=== PATIENT | male | born 1960 | race Caucasian/White ===

== ENCOUNTER 2018-05-31 06:45 | Observation (INO) | payer OTHER ==
[2018-05-31] MEDS ORDERED: EPHEDrine SULFATE 50 MG/5 ML SYG ×2 (07:00→10:54)
[2018-05-31] MEDS ORDERED: ETOMIDATE 20 MG INJ (07:00)
[2018-05-31] MEDS: LIDOCAINE 1%/EPI (1:100,000) (MDV) 20 ML INJ ×2 (09:00→10:51)
[2018-05-31] MEDS ORDERED: LACTATED RINGER'S 1,000 ML IV (09:00)
[2018-05-31] MEDS ORDERED: DIPHENHYDRAMINE 50 MG INJ IV (10:30)
[2018-05-31] MEDS ORDERED: PROCHLORPERAZINE 10 MG INJ IV (10:30)
[2018-05-31] MEDS ORDERED: ONDANSETRON 4 MG INJ IV (10:30)
[2018-05-31] MEDS ORDERED: HYDROmorphONE 1 MG/5 ML IV SYRINGE IV (10:30)
[2018-05-31] MEDS ORDERED: MEPERIDINE 25 MG INJ IV (10:30)
[2018-05-31] MEDS ORDERED: FENTAnyl 50 MCG/ML VIAL IV (10:30)
[2018-05-31] MEDS ORDERED: LIDOCAINE 2% (SDV) 5 ML INJ (10:31)
[2018-05-31] MEDS ORDERED: MIDAZOLAM 1 MG/ML 2 ML INJ (10:31)
[2018-05-31] MEDS ORDERED: FENTAnyl 50 MCG/ML VIAL ×2 (10:31→11:19)
[2018-05-31] MEDS ORDERED: PROPOFOL 20 ML (10:31)
[2018-05-31] MEDS ORDERED: SUCCINYLCHOLINE CHLORIDE 100 MG/5 ML SYG IV (10:31)
[2018-05-31] MEDS ORDERED: FAMOTIDINE 20 MG INJ (10:47)
[2018-05-31] MEDS ORDERED: DEXAMETHASONE 4 MG/ML 1 ML INJ (10:47)
[2018-05-31] MEDS ORDERED: ONDANSETRON 4 MG INJ (10:47)
[2018-05-31] MEDS: COCAINE 4% 4 ML TOP (10:51)
[2018-05-31] MEDS ORDERED: ROCURONIUM 50 MG INJ (11:06)
[2018-05-31] MEDS ORDERED: SUGAMMADEX SODIUM 200 MG/2 ML VIAL IV (11:07)
[2018-05-31] MEDS: NEOMYC/POLYMYX/BACIT 30 GM OINT (11:47)
[2018-05-31] MEDS: OXYCODONE/ACETAMINOPHEN (10/325) TAB PO (13:00)
[2018-05-31] MEDS: MEPERIDINE 25 MG INJ IM ×2 (15:36→20:29)
[2018-06-01] MEDS: MEPERIDINE 25 MG INJ IM (01:03)
[2018-06-01] MEDS: OXYCODONE/ACETAMINOPHEN (10/325) TAB PO (08:35)
== END 2018-06-01 11:00 | disposition home or self-care (01) ==
LOC: SDS 06:45 → 5EC 12:41 → SDS 11:57 → REC 11:58 → 5EC 13:50
DX: J34.2 Deviated nasal septum (principal); J34.3 Hypertrophy of nasal turbinates; I10 Essential (primary) hypertension; M19.90 Unspecified osteoarthritis, unspecified site
CPT/HCPCS: 30520; 71045; 88300